=== PATIENT | male | born 1990 | race African-American/Black ===

== ENCOUNTER 2019-03-03 18:34 | Observation (INO) | payer SELFPAY ==
[~2019-03-03] VITALS: Ht 193 cm; Wt 90.4 kg
[~2019-03-03 18:34] MED LIST: CEFOXITIN SOD 1 GM VIAL ONE; DEXAMETHASONE SOD PHOS INJ 4 MG/ML VIAL ONE; FENTANYL CITRATE/PF 100MCG/2 ML INJ ONE; GLYCOPYRROLATE INJ 1MG/ 5 ML SYR ONE; LIDOCAINE HCL 2% LOCAL INJ 5 ML SDV VIAL INJ ONE; MIDAZOLAM HCL 2 MG/2 ML VIAL ONE; NEOSTIGMINE 5 MG/5ML SYR ONE; ONDANSETRON HCL INJ 2MG/ML 2ML 2 MG/ML VIAL ONE; PROPOFOL IV EMULSION 10 MG/ML 20 ML VIAL ONE; ROCURONIUM BROMIDE 10 MG/ML 5ML VIAL ONE
[2019-03-03] MEDS ORDERED: ONDANSETRON HCL INJ 2MG/ML 2ML 2 MG/ML VIAL IV ONE ×2 (18:46→20:42)
[2019-03-03] MEDS ORDERED: KETOROLAC TROMETHAMINE 30 MG/ML VIAL IV ONE (18:46)
[2019-03-03] MEDS ORDERED: SODIUM CHLORIDE 0.9% 1000ML 1,000 ML IV STA (18:46)
[2019-03-03 19:09] LABS: BASOPHILS # (AUTO) 0.1 (0.0-0.1); BASOPHILS % 0.5 % (0.0-1.0); EOSINOPHILS # (AUTO) 0.3 (0.0-0.4); EOSINOPHILS % 2.6 % (0.0-6.0); HEMATOCRIT 37.4 % (38.2-49.6); HEMOGLOBIN 13.7 g/dL (14.0-18.0); LYMPHOCYTES # (AUTO) 3.2 (1.0-3.2); LYMPHOCYTES % 28.4 % (18.0-39.1); MEAN CORPUSCULAR HEMOGLOBIN 28.6 pg (28-32); MEAN CORPUSCULAR HGB CONC 36.6 g/dL (31-35); MEAN CORPUSCULAR VOLUME 78.1 fL (81-99); MONOCYTES # (AUTO) 1.2 (0.2-0.8); MONOCYTES % 10.4 % (4.4-11.3); NEUTROPHILS # (AUTO) 6.4 (2.1-6.9); NEUTROPHILS % 57.8 % (38.7-80.0); PLATELET COUNT 225 x10e3/uL (140-360); RED BLOOD COUNT 4.79 x10e6/uL (4.3-5.7); RED CELL DISTRIBUTION WIDTH 13.2 % (11.7-14.4)
[2019-03-03 19:09] LABS: BILIRUBIN,URINE NEGATIVE (NEGATIVE); CLARITY,URINE SL CLOUDY (CLEAR); COLOR,URINE YELLOW (YELLOW); KETONES,URINE NEGATIVE (NEGATIVE); LEUKOCYTE ESTERASE ,URINE TRACE (NEGATIVE); NITRITE,URINE NEGATIVE (NEGATIVE); PROTEIN,URINE DIPSTICK 1+ (NEGATIVE); URINE UROBILINOGEN 1 mg/dL (0.2 - 1)
[2019-03-03 19:11] LABS: EPITHELIAL CELLS,URINE MODERATE /LPF
[2019-03-03 19:12] LABS: AMORPHOUS SEDIMENT,URINE FEW (FEW); BACTERIA,URINE FEW /HPF; MUCUS,URINE MODERATE (RARE)
[2019-03-03 19:26] LABS: ALANINE AMINOTRANSFERASE 21 IU/L (0-55); ALBUMIN 4.2 g/dL (3.5-5.0); ALBUMIN/GLOBULIN RATIO 1.3 (0.8-2.0); ALKALINE PHOSPHATASE 47 IU/L (40-150); AMYLASE 76 U/L (25-125); ANION GAP 13.8 mmol/L (8-16); BLOOD UREA NITROGEN 12 mg/dL (7-26); BUN/CREATININE RATIO 10 (6-25); CALCIUM 9.8 mg/dL (8.4-10.2); CARBON DIOXIDE 28 mmol/L (22-29); CHLORIDE 98 mmol/L (98-107); CREATININE, SERUM 1.19 mg/dL (0.72-1.25); EST GLOMERULAR FILTRATION RATE > 60 ML/MIN (60-); GLUCOSE 97 mg/dL (74-118); LIPASE 28 U/L (8-78); POTASSIUM 3.8 mmol/L (3.5-5.1); SODIUM 136 mmol/L (136-145)
--- NOTE | 2019-03-03 20:36 | Diagnostic Imaging Report ---
EXAMINATION: CT of the abdomen and pelvis with contrast. TECHNIQUE: Helical CT images of the abdomen and pelvis were performed from the lung bases to the lesser trochanters after the intravenous administration of 100 cc of Isovue 300 and the oral administration of none. Coronal and sagittal reformatted images were obtained. Dose modulation, iterative reconstruction, and/or weight based adjustment of the mA/kV was utilized to reduce the radiation dose to as low as reasonably achievable. COMPARISON: None. CLINICAL HISTORY:Abdominal pain, evaluate for appendicitis. DISCUSSION: ABDOMEN/PELVIS: LOWER THORAX:Unremarkable. HEPATOBILIARY: No focal hepatic lesions. No intra-or extrahepatic biliary ductal dilation. The gallbladder is normal. SPLEEN: No splenomegaly. PANCREAS: No focal masses or ductal dilatation. ADRENALS: No adrenal nodules. KIDNEYS/URETERS: No hydronephrosis, stones, or solid mass lesions. PELVIC ORGANS/BLADDER: The bladder is normal. PERITONEUM/RETROPERITONEUM: No free air or fluid. LYMPH NODES: No intra-abdominal, retroperitoneal, pelvic or inguinal lymphadenopathy. VESSELS: Unremarkable. GI TRACT: No distention or wall thickening. A blind ending dilated tubal structure in the anterior superficial pelvis on axial image 52 through 61 measuring up to 1.1 cm. Additionally seen on sagittal image 54 within the superficial pelvis. BONES AND SOFT TISSUE: No bony destructive lesions. No soft tissue abnormalities. IMPRESSION: Acute nonruptured appendicitis. Signed by: Dr. Sylvain Azevedo M.D. on 03/03/2019 8:33 PM
[2019-03-03] MEDS ORDERED: MORPHINE SULFATE INJ 4 MG/ML INJ 1ML IV ONE (20:42)
[2019-03-03] MEDS ORDERED: CEFTRIAXONE SOD 1 GM/NS 50 ML 50 ML IV ONE (20:45)
[2019-03-03] MEDS ORDERED: MORPHINE SULFATE 2 MG/ML SYR 1ML IV PRN (21:00)
--- OUTSIDE RECORDS SUMMARY | 2019-03-03 21:01 | XMS REPORT ---
Author [facility] Address Unknown Phone Unavailable Care Team Providers Care Nurse Case Manager Name Role Phone ISELATIAGO Unavailable Unavailable Problems This patient has no known problems. Allergies, Adverse Reactions, Alerts This patient has no known allergies or adverse reactions. Medications This patient has no known medications. Results Test Description Test Time Test Comments Text Results Atomic Results Result Comments CT ABDOMEN/PELVIS W 2019-03-03 20:26:00 [place] [address] Patient Name: CRYSTAL DAVILA MR #: [id number] : 1990 Age/Sex: 28/M Req #: [id number] Adm Physician: Ordered by: TIAGO SNYDER VP [employer] Report #: [id number] Location: ER Room/Bed: Procedure: [id number] CT/CT ABDOMEN/PELVIS W Exam Date: Exam Time: REPORT STATUS: Signed EXAMINATION: CT of the abdomen and pelvis with contrast. TECHNIQUE: Helical CT images of the abdomen and pelvis were performed from the lung bases to the lesser trochanters after the intravenous administration of 100 cc of Isovue 300 and the oral administration of none. Coronal and sagittal reformatted images were obtained. Dose modulation, iterative reconstruction, and/or weight based adjustment of the mA/kV was utilized to reduce the radiation dose to as low as reasonably achievable. COMPARISON: None. CLINICAL HISTORY:Abdominal pain, evaluate for appendicitis. DISCUSSION: ABDOMEN/PELVIS: LOWER THORAX:Unre markable. HEPATOBILIARY: No focal hepatic lesions. No intra-or extrahepatic biliary ductal dilation. The gallbladder is normal. SPLEEN: No splenomegaly. PANCREAS: No focal masses or ductal dilatation. ADRENALS: No adrenal nodules. KIDNEYS/URETERS: No hydronephrosis, stones, or solid mass lesions. PELVIC ORGANS/BLADDER: The bladder is normal. PERITONEUM/RETROPERITONEUM: No free air or fluid. LYMPH NODES: No intra-abdominal, retroperitoneal, pelvic or inguinal lymphadenopathy. VESSELS: Unremarkable. GI TRACT: No distention or wall thickening. A blind ending dilated tubal structure in the anterior superficial pelvis on axial image 52 through 61 measuring up to 1.1 cm. Additionally seen on sagittal image 54 within the superficial pelvis. BONES AND SOFT TISSUE: No bony destructive lesions. No soft tissue abnormalities. IMPRESSION: Acute nonruptured appendicitis. Signed by: Dr. Joaquín Escalante M.D. on 03/03/2019 8:33 PM Dictated By: JOAQUÍN ESCALANTE MD 32 Transcribed By: SINDI on 03/03/192032 COPY TO: TIAGO SNYDER NP
[2019-03-03] MEDS ORDERED: IOPAMIDOL 370 MG/ML 200 ML INFUS..BTL INJ ONE (22:32)
[2019-03-03] MEDS ORDERED: SODIUM CHLORIDE 0.9% 50ML 50 ML ONE (22:32)
[2019-03-03 22:43] VITALS: BP 121/76
[2019-03-03] MEDS: SODIUM CHLORIDE 0.9% 1000ML 1,000 ML IV SCH (22:50)
[2019-03-03 23:02] VITALS: BP 121/76
[2019-03-03 23:05] VITALS: BP 121/76
[2019-03-04] VITALS (7 sets, daily range): BP systolic 106–124; BP diastolic 59–75
[2019-03-04] MEDS: SODIUM CHLORIDE 0.9% 1000ML 1,000 ML IV SCH ×3 (06:30→22:30)
--- NOTE | 2019-03-04 08:13 | NUR ---
PT RESTING IN BED. NO C/O PAIN OR S/S DISTRESS. PER DR ROSA, APPI TO BE DONE THIS MORNING. PT IS NPO. VS STABLE.
[2019-03-04] MEDS ORDERED: BUPIVACAINE 0.25%/EPI 30ML SDV INJ ONE (09:25)
--- NOTE | 2019-03-04 09:53 | NUR ---
PT OFF UNIT FOR PROCEDURE
[2019-03-04] MEDS ORDERED: ONDANSETRON HCL INJ 2MG/ML 2ML 2 MG/ML VIAL ONE (11:39)
[2019-03-04] MEDS: MORPHINE SULFATE INJ 4 MG/ML INJ 1ML IV PRN ×3 (12:30→22:00)
[2019-03-04] MEDS: ONDANSETRON HCL INJ 2MG/ML 2ML 2 MG/ML VIAL IV PRN ×3 (12:30→22:00)
--- NOTE | 2019-03-04 12:30 | NUR ---
PT RETURNED, TOLERATING DIET WELL. FIRST TIME MORPHINE, REQUESTED HALF DOSE.
[2019-03-04] MEDS: ACETAMINOPHEN/CODEINE 300MG - 30MG TAB PO PRN (15:21)
--- NOTE | 2019-03-04 15:47 | History and Physical ---
CHIEF COMPLAINT: Abdominal pain. HISTORY OF PRESENT ILLNESS: This patient is a 28-year-old male with 2-day history of pain in the right lower quadrant with intermittent vomiting. No fever, chills, or diarrhea. PAST MEDICAL HISTORY: Unremarkable. PAST SURGICAL HISTORY: Positive for ear surgery as a child. ALLERGIES: NO DRUG ALLERGIES. SOCIAL HABITS: No smoking or alcohol abuse. REVIEW OF SYSTEMS: He denies cough, chest pain, or shortness of breath. PHYSICAL EXAMINATION: VITAL SIGNS: Stable. Afebrile. GENERAL: The patient is awake, alert, in mild discomfort. HEENT: Sclerae anicteric. NECK: Supple. LUNGS: Clear. HEART: Regular rate and rhythm. ABDOMEN: Soft with some guarding in the right lower quadrant with minimal rebound tenderness. LABORATORY DATA: White cell count 11 and hemoglobin of 14. Creatinine of 1.1. CT of the abdomen show acute nonruptured appendicitis. ASSESSMENT: Appendicitis. PLAN: Laparoscopic appendectomy. Attendant risks have been discussed. Tariq Dyer MD DNTran/MODL /[id number]
--- NOTE | 2019-03-04 17:28 | Operative Report ---
DATE OF PROCEDURE: 03/04/2019 SURGEON: Tariq Dyer MD PREOPERATIVE DIAGNOSIS: Appendicitis. POSTOPERATIVE DIAGNOSIS: Appendicitis. OPERATIVE PROCEDURE: Laparoscopic appendectomy. ANESTHESIA: General. INDICATION: A 28-year-old male with 2-day history of pain in the right lower quadrant with CT scan showing appendicitis. The patient consented for laparoscopic appendectomy. Attendant risks discussed. PROCEDURE FINDING: Acute appendicitis. DESCRIPTION OF PROCEDURE: The patient was brought to the OR, intubated. Abdomen prepped and draped in sterile fashion. Infraumbilical incision was made and a 12 mm port inserted. Insufflation began under direct vision. Other port site placed in the right upper quadrant and suprapubic region. Appendix localized was noted to be grossly inflamed, but not perforated. The mesoappendix controlled with the LigaSure down to the neck of the appendix, which was then snared with an Endoloop ties or #0 PDS flush to the base of the cecum. The appendix was then amputated just distal to the tie using the LigaSure instrument. Appendix placed in an Endopouch and retrieved out the peritoneal cavity. Operative field irrigated. Hemostasis achieved. All ports removed under direct vision. Fascia closure with #0 Vicryl. Skin was closed with subcuticular stitch. The patient was extubated and transported to recovery room. ESTIMATED BLOOD LOSS: 2 mL. Tariq Dyer MD DNL/MODL /[id number]
[2019-03-05] VITALS: BP 115/60
[2019-03-05] MEDS: ACETAMINOPHEN/CODEINE 300MG - 30MG TAB PO PRN ×2 (03:55→11:59)
[2019-03-05] MEDS: SODIUM CHLORIDE 0.9% 1000ML 1,000 ML IV SCH (03:55)
[2019-03-05 04:00] VITALS: BP 122/77
[2019-03-05 07:29] VITALS: BP 122/77
--- NOTE | 2019-03-05 11:00 | NUR ---
PT HAS DISCHARGE PPW, VERBALIZED UNDERSTANDING. WAITING FOR RIDE
[2019-03-05 12:08] VITALS: BP 122/65
== END 2019-03-05 16:00 | disposition home or self-care (01) ==
LOC: ER 18:34 → ERHOLD 20:57 → MED/SURG 22:20
PROVIDERS: ADMIT Surgery; ATTEND Surgery
DX: K35.80 Unspecified acute appendicitis (principal); F17.210 Nicotine dependence, cigarettes, uncomplicated
CPT/HCPCS: 36415; 44970; 74177; 80053; 81001; 82150; 83690; 85025; 87086; 88304; 96374; 99284; G0378 ×3; J0696; J1885; J2250; J2270; J2405 ×2; J3010; J7030 ×3; Q9967; J0694; J1100; J2001